=== PATIENT | female | born 1990 | race Caucasian/White ===

== ENCOUNTER 2021-06-11 12:13 | Outpatient (CLI) | payer OTHER | END 2021-06-11 14:43 | disposition home or self-care (01) | LOC: NST 12:13 | PROVIDERS: ATTEND Obstetrics & Gynecology | DX: Z34.83 Encounter for supervision of other normal pregnancy, third trimester (principal) ==

== ENCOUNTER 2021-06-18 12:04 | Outpatient (CLI) | payer OTHER | END 2021-06-18 13:02 | disposition home or self-care (01) | LOC: NST 12:04 | PROVIDERS: ATTEND Obstetrics & Gynecology Maternal & Fetal Medicine | DX: Z34.83 Encounter for supervision of other normal pregnancy, third trimester (principal) ==

== ENCOUNTER 2021-06-21 08:17 | Outpatient (CLI) | payer OTHER | END 2021-06-21 09:14 | disposition home or self-care (01) | LOC: NST 08:17 → EDBD 08:17 → NST 09:14 | PROVIDERS: ATTEND Obstetrics & Gynecology Maternal & Fetal Medicine | DX: Z34.83 Encounter for supervision of other normal pregnancy, third trimester (principal) ==

== ENCOUNTER 2021-06-23 04:38 | Inpatient (IN) | payer OTHER ==
[~2021-06-23] VITALS: Ht 167.6 cm; Wt 82.6 kg
[2021-06-23] MEDS ORDERED: PRENATAL TABLE1 EAC1 PO (05:17)
== END 2021-06-25 11:36 | disposition home or self-care (01) | DRG 807 ==
LOC: LDR 04:38 → OB/GYN 04:38
PROVIDERS: ADMIT Obstetrics & Gynecology Maternal & Fetal Medicine; ATTEND Obstetrics & Gynecology
PROC: 10E0XZZ Delivery of Products of Conception, External Approach (ICD-10-PCS; principal; 2021-06-23)
PROC: 4A1HXCZ Monitoring of Products of Conception, Cardiac Rate, External Approach (ICD-10-PCS; 2021-06-23)
DX: O80 Encounter for full-term uncomplicated delivery (principal); Z37.0 Single live birth; Z3A.38 38 weeks gestation of pregnancy; Z20.822 Contact with and (suspected) exposure to COVID-19

== ENCOUNTER 2024-06-12 11:19 | Outpatient (CLI) | payer OTHER ==
[~2024-06-12 11:19] MED LIST: PRENATAL TABLE1 EAC1 PO
[2024-06-12 11:47] VITALS: BP 115/78
== END 2024-06-12 12:57 | disposition home or self-care (01) ==
LOC: NST 11:19
PROVIDERS: ATTEND Obstetrics & Gynecology
DX: Z34.83 Encounter for supervision of other normal pregnancy, third trimester (principal)

== ENCOUNTER 2024-06-14 13:36 | Inpatient (IN) | payer OTHER ==
[~2024-06-14] VITALS: Ht 167.6 cm; Wt 83.5 kg
[2024-06-19 22:36] VITALS: BP 125/85
[2024-06-19] MEDS ORDERED: RINGERS SOLUTION,LACTATED 1,000 ML IV SCH (23:00)
[2024-06-19 23:15] VITALS: BP 130/76
[2024-06-20] VITALS (10 sets, daily range): BP systolic 97–128; BP diastolic 61–88
[2024-06-20 00:09] LABS: URINE APPEARANCE Clear; URINE BILIRRUBIN Negative (NEGATIVE); URINE BLOOD Moderate; URINE COLOR Yellow; URINE GLUCOSE Negative (NEGATIVE); URINE KETONE Negative (NEGATIVE); URINE LEUKOCYTE Negative; URINE NITRATE Negative; URINE PROTEIN Negative (NEGATIVE); URINE UROBILINOGEN 0.2 E.U./dl
[2024-06-20 00:12] LABS: URINE BACTERIA 69.7 uL (0.0-1933); URINE RBC 172.6 uL (0.0-20.8)
[2024-06-20 00:18] LABS: HEMATOCRIT 40.3 % (36.0-45.00); HEMOGLOBIN 13.4 g/dL (12.0-15.00); MEAN CELL VOLUME 83.5 fL (80.00-100.00); MEAN CORPUSCULAR HEMOGLOBIN 27.8 pg (27.00-32.0); MEAN CORPUSCULAR HGB CONC 33.3 g/dl (32.0-36.0); PLATELET COUNT 242 K/uL (150-450); RED BLOOD COUNT 4.83 M/uL (4.00-6.00); RED CELL DISTRIBUTION WIDTH 13.8 % (11.5-14.5)
[2024-06-20] MEDS ORDERED: ERYTHROMYCIN BASE OPHT 1GM EACH TUBE OP ONE ×2 (00:21→00:28)
[2024-06-20] MEDS ORDERED: OXYTOCIN 10 UNITS/ML VIAL ONE ×2 (00:22→00:29)
[2024-06-20] MEDS ORDERED: LIDOCAINE HCL 1% 10ML VIAL ONE ×2 (00:22→00:28)
[2024-06-20] MEDS ORDERED: CHLORHEXIDINE GLUCONATE 120 ML BOTTLE TOP ONE ×2 (00:22→00:28)
[2024-06-20 00:28] LABS: BILIRUBIN TOTAL 0.3 mg/dL (0.3-1.2); CALCIUM 9.4 mg/dL (8.5-10.1); CREATININE SERUM 0.71 mg/dL (0.55-1.02); GFR 94.8; GLOBULINA 3.6 G/DL (2.4-3.5); POTASSIUM 3.96 mEq/L (3.5-5.1); TOTAL PROTEIN 6.6 gm/dL (6.4-8.2)
[2024-06-20] MEDS ORDERED: CHLORHEXIDINE GLUCONATE 120 ML BOTTLE TP SCH (00:45)
[2024-06-20] MEDS ORDERED: OXYTOCIN 1,000 ML IV SCH (00:45)
[2024-06-20 01:18] LABS: INR 0.94; PARTIAL THROMBOPLASTIN TIME 27.9 SECONDS (22.0-34.0); PROTHROMBIN TIME 10.3 SECONDS (9.0-11.5)
[2024-06-20] MEDS ORDERED: OxyCODONE HCL 5 MG TABLET (ROXICODONE) PO SCH (04:00)
[2024-06-21 08:00] VITALS: BP 124/77
[2024-06-21 17:48] VITALS: BP 102/69
[2024-06-21 23:46] VITALS: BP 112/73
[2024-06-22 08:00] VITALS: BP 103/67
== END 2024-06-22 13:05 | disposition home or self-care (01) | DRG 807 ==
LOC: OB/GYN 06-19 22:46 → LDR 06-19 22:46 → OB/GYN 06-20 01:21 → LDR 06-22 13:45
PROVIDERS: ADMIT Obstetrics & Gynecology Maternal & Fetal Medicine; ATTEND Obstetrics & Gynecology Maternal & Fetal Medicine
PROC: 4A1HXCZ Monitoring of Products of Conception, Cardiac Rate, External Approach (ICD-10-PCS; 2024-06-19)
PROC: 10E0XZZ Delivery of Products of Conception, External Approach (ICD-10-PCS; principal; 2024-06-20)
PROC: 0UQG7ZZ Repair Vagina, Via Natural or Artificial Opening (ICD-10-PCS; 2024-06-20)
DX: O71.4 Obstetric high vaginal laceration alone (principal); Z37.0 Single live birth; Z3A.39 39 weeks gestation of pregnancy

== ENCOUNTER 2024-06-18 16:13 | Outpatient (CLI) | payer OTHER | END 2024-06-18 17:49 | disposition home or self-care (01) | LOC: NST 16:13 | PROVIDERS: ATTEND Obstetrics & Gynecology | DX: Z34.83 Encounter for supervision of other normal pregnancy, third trimester (principal) ==